=== PATIENT | male | born 1990 | race Caucasian/White ===

== ENCOUNTER 2024-12-10 04:55 | Emergency (ER) | payer SELFPAY ==
[~2024-12-10] VITALS: Ht 165.1 cm; Wt 61.2 kg
[2024-12-10 05:00] VITALS: O2SAT 98
[2024-12-10] MEDS: MORPHINE SULFATE 4 MG/ML INJ (FOR IV/IM USE) IV ONE (05:15)
[2024-12-10] MEDS: ONDANSETRON HCL 4MG/2ML INJ IV ONE (05:15)
[2024-12-10 05:55] LABS: BASOPHILS % 0.1 % (0.0-2.0); EOSINOPHILS % 1.2 % (0.0-5.0); HEMATOCRIT. 40.4 % (42.0-52.0); HEMOGLOBIN. 13.6 g/dL (14.0-18.0); LYMPHOCYTES % 27.4 % (20.0-50.0); MEAN PLATELET VOLUME 7.7 fl (7.4-10.4); MONOCYTES % 6.7 % (2.0-8.0); NEUTROPHILS % 64.6 % (40.0-76.0); PLATELET 306 x1000/uL (130-400); RED BLOOD CELL COUNT 4.54 mill/uL (4.7-6.1); RED CELL DISTRIBUTION WIDTH 13.5 % (11.6-14.6)
[2024-12-10 06:08] LABS: CREATININE 1.0 mg/dL (0.6-1.3); UREA NITROGEN BLOOD 13 mg/dL (9-23)
[2024-12-10] MEDS ORDERED: TOPUD PO (07:02)
[2024-12-10] MEDS: IOHEXOL-350 100 ML BOTTLE ONE (07:27)
[2024-12-10] MEDS: KETOROLAC 30MG/ML VIAL IV ONE (07:28)
[2024-12-10 08:00] VITALS: BP 114/73; PULSE 71; RESP 16; TEMP 36.8; O2SAT 97
== END 2024-12-10 08:00 | disposition home or self-care (01) ==
LOC: ER 05:37 → CMPBEDREQ 19:26
DX: M54.50 Low back pain, unspecified (principal); R42 Dizziness and giddiness; Z79.899 Other long term (current) drug therapy; Z20.822 Contact with and (suspected) exposure to COVID-19
CPT/HCPCS: 99285; 71275; 74174; 96374; 71045; 80048; 85025; 86850; 86900; 86901; 36415; 70450; 72125; J1885; Q9967